=== PATIENT | female | born 1975 | race Caucasian/White ===

== ENCOUNTER 2022-04-29 13:06 | Emergency (ER) | payer OTHER ==
[~2022-04-29] VITALS: Ht 162.6 cm; Wt 61.2 kg
[2022-04-29 13:08] VITALS: BP 122/70
--- NOTE | 2022-04-29 14:30 | NUR ---
PATIENT LEFT WITHOUT BEING SEEN BY DR. DR CLARKE. NO FURTHER CARE PROVIDED FOR PATIENT.
--- NOTE | 2022-04-29 14:30 | NUR ---
CALLED BY BUREAU DIRECTOR;NO ANSWER
--- NOTE | 2022-04-29 14:53 | NUR ---
CALLED [phone] FOR EKG - NO ANSWER
== END 2022-04-29 14:30 | disposition left against medical advice (07) ==
LOC: MED 13:06
DX: R55 Syncope and collapse (principal); Z53.21 Procedure and treatment not carried out due to patient leaving prior to being seen by health care provider